=== PATIENT | male | born 1940 | race Caucasian/White ===

== ENCOUNTER 2020-04-12 11:38 | Inpatient (IN) | payer MEDICARE ==
[2020-04-12] MEDS ORDERED: ACETAMINOPHEN TAB 500 MG TAB PO STA (12:09)
[2020-04-12] MEDS ORDERED: SODIUM CHLORIDE 0.9% 500 ML 500 ML IV STA ×2 (12:09→13:53)
--- NOTE | 2020-04-12 12:24 | ED ---
General Adult HPI - General Chief complaint: Weakness Stated complaint: stroke Time Seen by Provider: 04/12/20 12:01 Source: patient, EMS, RN notes reviewed, old records reviewed Mode of arrival: EMS Limitations: altered mental status - History of Present Illness Initial comments: 79-year-old male presenting for evaluation of fever. Patient is coming from a assisted living facility. He was diagnosed with coronavirus on March 27. He received the coronavirus vaccine yesterday and developed fever today. Patient himself has no complaints. He is alert and oriented 1 which is his baseline, history of Alzheimer dementia. He denies pain complaints including no chest pain or abdominal pain. - Related Data Home Medications Medication Instructions Recorded Confirmed Ascorbic Acid [Vitamin C] 500 mg PO BID@0800,1700 04/12/20 04/12/20 Cholecalciferol [Vitamin D3 (25 2,000 unit PO DAILY 04/12/20 04/12/20 Mcg = 1000 Iu)] Citalopram Hydrobromide [CeleXA] 20 mg PO DAILY 04/12/20 04/12/20 Ibuprofen [Motrin] 400 mg PO TID PRN 04/12/20 04/12/20 QUEtiapine [SEROquel] 50 mg PO TID 04/12/20 04/12/20 Zinc 100 mg PO DAILY@1200 04/12/20 04/12/20 busPIRone HCL [Buspar] 7.5 mg PO BID@0800,1700 04/12/20 04/12/20 traZODone HCL 300 mg PO HS 04/12/20 04/12/20 Allergies Allergy/AdvReac Type Severity Reaction Status Date / Time No Known Allergies Allergy Verified 04/12/20 13:02 Review of Systems ROS Statement: Those systems with pertinent positive or pertinent negative responses have been documented in the HPI. ROS Other: All systems not noted in ROS Statement are negative. Past Medical History Past Medical History: Unable to Obtain, Dementia History of Any Multi-Drug Resistant Organisms: Unobtainable Past Surgical History: Unable to Obtain Past Psychological History: Anxiety Smoking Status: Unknown if ever smoked General Exam Limitations: altered mental status General appearance: alert, in no apparent distress Head exam: Present: atraumatic, normocephalic Eye exam: Present: normal appearance, PERRL ENT exam: Present: mucous membranes dry Neck exam: Present: normal inspection. Absent: tenderness, meningismus Respiratory exam: Present: normal lung sounds bilaterally. Absent: respiratory distress, wheezes Cardiovascular Exam: Present: regular rate, normal rhythm GI/Abdominal exam: Present: soft. Absent: distended, tenderness, guarding Extremities exam: Present: normal inspection, normal capillary refill. Absent: pedal edema Neurological exam: Present: alert, CN II-XII intact. Absent: motor sensory deficit Psychiatric exam: Present: normal affect, normal mood Skin exam: Present: warm, dry, intact. Absent: cyanosis, diaphoretic Course Vital Signs 04/12/20 04/12/20 11:43 14:01 Temperature 102.0 F H 99.0 F Pulse Rate 84 60 Respiratory 16 18 Rate Blood Pressure 100/84 108/57 O2 Sat by Pulse 94 L 94 L Oximetry - Reevaluation(s) Reevaluation #1: 04/12/20 14:13 Additional labs are ordered, results are pending for d-dimer and CRP. EKG Findings - EKG Comments: EKG Findings:: EKG: Normal sinus rhythm, rate of 84, GA interval 166, QRS duration 76, QTC 453, no ST segment elevation. Medical Decision Making - Medical Decision Making 79-year-old male presenting with fever, recent history of coronavirus and vaccinated yesterday against coronal virus. Workup was initiated, patient does have a bilateral interstitial pneumonia consistent with coronavirus pneumonia. Patient was 94% on room air. He does appear dehydrated. According to his daughter who is at bedside he states that significant worsening of his dementia over the past one or 2 weeks. Patient is given a dose of antibiotics for this pneumonia although I suspect it may be a continuation of his coronavirus rather than acute bacterial illness. Given the patient's dehydration, and inability to care for himself currently I will admit him for IV hydration and close monitoring. Case discussed with Dr. George who will admit. - Lab Data Result diagrams: 04/12/20 12:26 04/12/20 12:26 Lab Results 04/12/20 04/12/20 04/12/20 Range/Units 12:26 12:26 12:26 WBC 9.3 (3.8-10.6) k/uL RBC 4.60 (4.30-5.90) m/uL Hgb 14.9 (13.0-17.5) gm/dL Hct 41.9 (39.0-53.0) % MCV 91.1 (80.0-100.0) fL MCH 32.3 (25.0-35.0) pg MCHC 35.5 (31.0-37.0) g/dL RDW 11.7 (11.5-15.5) % Plt Count 246 (150-450) k/uL MPV 9.5 Neutrophils % 84 % Lymphocytes % 6 % Monocytes % 6 % Eosinophils % 2 % Basophils % 2 % Neutrophils # 7.8 H (1.3-7.7) k/uL Lymphocytes # 0.6 L (1.0-4.8) k/uL Monocytes # 0.6 (0-1.0) k/uL Eosinophils # 0.2 (0-0.7) k/uL Basophils # 0.1 (0-0.2) k/uL PT 11.3 (9.0-12.0) sec INR 1.1 (<1.2) APTT 25.4 (22.0-30.0) sec Sodium (137-145) mmol/L Potassium (3.5-5.1) mmol/L Chloride (98-107) mmol/L Carbon Dioxide (22-30) mmol/L Anion Gap mmol/L BUN (9-20) mg/dL Creatinine (0.66-1.25) mg/dL Est GFR (CKD-EPI)AfAm (>60 ml/min/1.73 sqM) Est GFR (CKD-EPI)NonAf (>60 ml/min/1.73 sqM) Glucose (74-99) mg/dL Plasma Lactic Acid Vaughn (0.7-2.0) mmol/L Calcium (8.4-10.2) mg/dL Magnesium (1.6-2.3) mg/dL Total Bilirubin (0.2-1.3) mg/dL AST (17-59) U/L ALT (4-49) U/L Alkaline Phosphatase (38-126) U/L Total Protein (6.3-8.2) g/dL Albumin (3.5-5.0) g/dL Urine Color Yellow Urine Appearance Clear (Clear) Urine pH 7.0 (5.0-8.0) Ur Specific Haughton 1.018 (1.001-1.035) Urine Protein Negative (Negative) Urine Glucose (UA) Negative (Negative) Urine Ketones Negative (Negative) Urine Blood Negative (Negative) Urine Nitrite Negative (Negative) Urine Bilirubin Negative (Negative) Urine Urobilinogen 2.0 (<2.0) mg/dL Ur Leukocyte Esterase Negative (Negative) 04/12/20 04/12/20 Range/Units 12:26 12:26 WBC (3.8-10.6) k/uL RBC (4.30-5.90) m/uL Hgb (13.0-17.5) gm/dL Hct (39.0-53.0) % MCV (80.0-100.0) fL MCH (25.0-35.0) pg MCHC (31.0-37.0) g/dL RDW (11.5-15.5) % Plt Count (150-450) k/uL MPV Neutrophils % % Lymphocytes % % Monocytes % % Eosinophils % % Basophils % % Neutrophils # (1.3-7.7) k/uL Lymphocytes # (1.0-4.8) k/uL Monocytes # (0-1.0) k/uL Eosinophils # (0-0.7) k/uL Basophils # (0-0.2) k/uL PT (9.0-12.0) sec INR (<1.2) APTT (22.0-30.0) sec Sodium 137 (137-145) mmol/L Potassium 4.4 (3.5-5.1) mmol/L Chloride 102 (98-107) mmol/L Carbon Dioxide 28 (22-30) mmol/L Anion Gap 7 mmol/L BUN 11 (9-20) mg/dL Creatinine 0.89 (0.66-1.25) mg/dL Est GFR (CKD-EPI)AfAm >90 (>60 ml/min/1.73 sqM) Est GFR (CKD-EPI)NonAf 82 (>60 ml/min/1.73 sqM) Glucose 113 H (74-99) mg/dL Plasma Lactic Acid Vaughn 1.2 (0.7-2.0) mmol/L Calcium 9.0 (8.4-10.2) mg/dL Magnesium 1.9 (1.6-2.3) mg/dL Total Bilirubin 0.8 (0.2-1.3) mg/dL AST 31 (17-59) U/L ALT 21 (4-49) U/L Alkaline Phosphatase 117 (38-126) U/L Total Protein 7.1 (6.3-8.2) g/dL Albumin 3.8 (3.5-5.0) g/dL Urine Color Urine Appearance (Clear) Urine pH (5.0-8.0) Ur Specific Haughton (1.001-1.035) Urine Protein (Negative) Urine Glucose (UA) (Negative) Urine Ketones (Negative) Urine Blood (Negative) Urine Nitrite (Negative) Urine Bilirubin (Negative) Urine Urobilinogen (<2.0) mg/dL Ur Leukocyte Esterase (Negative) Disposition Clinical Impression: COVID-19, Dehydration Disposition: ADMITTED IP TO THIS HOSP Condition: Stable Is patient prescribed a controlled substance at d/c from ED?: No Referrals: Wojciech Knowles MD [Primary Care Provider] - 1-2 days Decision to Admit Reason: Admit from EC Decision Date: 04/12/20 Decision Time: 14:14
[2020-04-12 12:39] LABS: Basophils # (A) 0.1 k/uL (0-0.2); Basophils % (A) 2 %; Eosinophils # (A) 0.2 k/uL (0-0.7); Eosinophils % (A) 2 %; HCT 41.9 % (39.0-53.0); HGB 14.9 gm/dL (13.0-17.5); Lymphocytes # (A) 0.6 k/uL (1.0-4.8); Lymphocytes % (A) 6 %; MCH 32.3 pg (25.0-35.0); MCHC 35.5 g/dL (31.0-37.0); MCV 91.1 fL (80.0-100.0); Mean Platelet Volume 9.5; Monocytes # (A) 0.6 k/uL (0-1.0); Monocytes % (A) 6 %; Neutrophils # (A) 7.8 k/uL (1.3-7.7); Neutrophils % (A) 84 %; Platelet Count 246 k/uL (150-450); RDW 11.7 % (11.5-15.5); WBC 9.3 k/uL (3.8-10.6)
[2020-04-12 12:48] LABS: ALT 21 U/L (4-49); AST 31 U/L (17-59); African American GFR (CKD) >90 (>60 ml/min/1.73 sqM); Albumin 3.8 g/dL (3.5-5.0); Alkaline Phosphatase 117 U/L (38-126); Anion Gap 7 mmol/L; Blood Urea Nitrogen 11 mg/dL (9-20); Carbon Dioxide 28 mmol/L (22-30); Chloride 102 mmol/L (98-107); Glucose 113 mg/dL (74-99); INR 1.1 (<1.2); Magnesium 1.9 mg/dL (1.6-2.3); Non-African American GFR(CKD) 82 (>60 ml/min/1.73 sqM); Partial Thromboplastin Time 25.4 sec (22.0-30.0); Potassium 4.4 mmol/L (3.5-5.1); Prothrombin Time 11.3 sec (9.0-12.0); Sodium 137 mmol/L (137-145); Total Bilirubin 0.8 mg/dL (0.2-1.3); Total Protein 7.1 g/dL (6.3-8.2)
--- NOTE | 2020-04-12 12:58 | XR ---
EXAMINATION TYPE: XR chest 2V DATE OF EXAM: 04/12/2020 COMPARISON: NONE TECHNIQUE: PA and lateral views submitted. HISTORY: Fever FINDINGS: There is hypertrophic and degenerative change of the spine with diffuse hyperinflation. There is inte rstitial and basilar infiltrates with tiny effusions or pleural thickening. Diffuse osteopenia and ar thropathy of the shoulders. No pneumothorax. Heart size normal. IMPRESSION: 1. Interstitial and basilar infiltrates correlate for interstitial pneumonia otherwise consider CHF. 2. COPD.
[2020-04-12 13:29] LABS: Appearance,Urine Clear (Clear); Bilirubin,Urine Negative (Negative); Blood,Urine Negative (Negative); Color,Urine Yellow; Glucose,Urine (UA) Negative (Negative); Ketones,Urine Negative (Negative); Leukocyte Esterase,Urine Negative (Negative); Nitrite,Urine Negative (Negative); Protein,Urine Negative (Negative); Specific Gravity,Urine 1.018 (1.001-1.035)
[2020-04-12] MEDS ORDERED: AZITHROMYCIN 500 MG in SODIUM CHLORIDE 0.9% 250 ML IVPB STA (13:41)
[2020-04-12] MEDS ORDERED: cefTRIAXone IN SWFI 1,000 MG/10 ML SYRINGE IVP STA (13:42)
[2020-04-12] MEDS ORDERED: DEXAMETHASONE SOD PHOSPHATE 10 MG/ML 1 ML VIAL IV STA (14:10)
[2020-04-12] MEDS: SODIUM CHLORIDE 0.9% 1,000 ML IV SCH (14:32)
[2020-04-12] MEDS ORDERED: ACETAMINOPHEN TAB 325 MG TAB PO PRN (15:50)
[2020-04-12] MEDS ORDERED: NALOXONE 0.4 MG/ML 1 ML VIAL IV PRN (15:50)
--- NOTE | 2020-04-12 16:02 | CT ---
EXAMINATION TYPE: CT angio chest DATE OF EXAM: 04/12/2020 COMPARISON: Radiograph same day HISTORY: 79-year-old male Shortness of breath. TECHNIQUE: Contiguous axial scanning of the chest performed with IV Contrast, patient injected with 1 00 mL of Isovue 370. Coronal/sagittal MIP reconstructions performed. CT DLP: 587.3 mGycm Automated exposure control for dose reduction was used. FINDINGS: Heart normal size without pericardial effusion. There is some right atrial dilatation but no flatteni ng of the interventricular septum or reflux of contrast into the hepatic veins. Scattered LAD and circumflex coronary artery calcifications. Aneurysm of the aortic root may measure up to 4.5 cm. Ectatic ascending aorta at 3.6 cm. Additional e ctatic upper descending thoracic aorta at 3.4 cm. Mild atherosclerotic arch calcifications with conve ntional arch with some branching anatomy. Adequate opacification of the pulmonary artery system without evidence for pulmonary embolus. No thoracic lymphadenopathy by CT size criteria. Mild centrilobular emphysema. No pleural effusion. Prominent groundglass opacity in the posterior aspect of the lower lobes bilaterally. Some other scattered groundglass foci are present in the posterior right midlung, for example, axial image 60 and 62, and also within the inferior lingula. 6 mm lateral right mid to lower lung pulmonary nodule. Visualized upper abdomen shows a 5.1 cm cyst of the upper pole left kidney and 5 mm nonobstructive ri ght renal calculus. Bones: DISH throughout the mid and lower thoracic spine. Scattered fatty matrix hemangiomas are prese nt in the thoracic spine. IMPRESSION: 1. NO EVIDENCE FOR PULMONARY EMBOLUS. 2. PROMINENT GROUNDGLASS OPACITY POSTERIOR ASPECT OF THE LOWER LOBES BILATERALLY. ADDITIONAL SCATTERE D GROUNDGLASS FOCI IN THE POSTERIOR RIGHT MIDLUNG AND INFERIOR LINGULA. CORRELATE FOR ATYPICAL/COVID VERSUS ASPIRATION PNEUMONIA. INTERSTITIAL PNEUMONITIS WOULD BE AN ALTERNATIVE CONSIDERATION. 3. A 6 MM PULMONARY NODULE ON THE RIGHT. 6 MONTH FOLLOW-UP CT TO REASSESS. 4. LAD AND CIRCUMFLEX CORONARY ARTERY CALCIFICATIONS. 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 APPROPRIATE FOLLOW-UP RECOMMENDED.
[2020-04-12] MEDS ORDERED: IBUPROFEN 400 MG TAB PO PRN (19:48)
[2020-04-12] MEDS ORDERED: traZODone HCL 100 MG TAB PO SCH (21:00)
[2020-04-12] MEDS: QUEtiapine 50 MG TAB PO SCH (22:29)
[2020-04-13] MEDS: SODIUM CHLORIDE 0.9% 1,000 ML IV SCH (04:10)
[2020-04-13] MEDS ORDERED: ASCORBIC ACID 500 MG TAB PO SCH (08:00)
[2020-04-13] MEDS ORDERED: busPIRone HCl 5 MG TAB PO SCH (08:00)
[2020-04-13] MEDS: QUEtiapine 50 MG TAB PO SCH (08:15)
[2020-04-13] MEDS ORDERED: CITALOPRAM HYDROBROMIDE 20 MG TAB PO SCH (09:00)
[2020-04-13] MEDS ORDERED: CHOLECALCIFEROL 1,000 UNIT TAB PO SCH (09:00)
[2020-04-13 10:19] VITALS: BP 107/61; PULSE 68; RESP 18; TEMP 97.6
[2020-04-13] MEDS ORDERED: ZINC SULFATE 220 MG CAP PO SCH (12:00)
[2020-04-13] MEDS ORDERED: dexAMETHasone 2 MG TAB PO SCH (13:00)
[2020-04-13] MEDS ORDERED: ENOXAPARIN 40 MG/0.4 ML SYRINGE SQ SCH (13:00)
[2020-04-13] MEDS ORDERED: RIVAROXABAN 2.5 MG TABLET PO STA (13:04)
--- NOTE | 2020-04-13 19:25 | P.HPIM ---
History of Present Illness H&P Date: 04/13/20 Chief Complaint: Fever History of presenting complaint This is a pleasant 79-year-old patient currently being followed by a visiting physicians. Patient is a resident of [facility]. Patient's daughter the bedside. Patient has known significant dementia. Otherwise in good health. Doesn't take any medications at home. Patient on March 27 was diagnosed with COVID and was given medications. Not hospitalized. 2 days ago patient did receive the vaccine for COVID 19. Daughter had noticed that patient is feeling little bit tired for last 2 days. Yesterday developed a fever and presented to the ER. Does no cough no shortness of breath. Pulse ox was good. Appetite is slightly gone down but today rapid is really good. Able to walk to the bathroom. Denies any cough or wheezing. Review of systems: GEN.: Tired EYES: None HEENT: None NECK: None RESPIRATORY: None CARDIOVASCULAR: None GASTROINTESTINAL: None GENITOURINARY: None MUSCULOSKELETAL: None LYMPHATICS: None HEMATOLOGICAL: None PSYCHIATRY: Forgetful] NEUROLOGICAL: None Past medical history to include: Dementia Social history: Retired. Lives at [facility]. No history of smoking or alcohol. Family history: Reviewed, noncontributory to presentation Physical examination: VITAL SIGNS: 97.6, 68, 18, 107/61, 95% room air GENERAL: BMI 25.7, sitting up in bed, comfortable. EYES: Pupils equal. Conjunctiva normal. HEENT: External appearance of nose and ears normal, oral cavity grossly normal. NECK: JVD not raised; masses not palpable. HEART: First and second heart sounds are normal; no edema. LUNGS: Respiratory rate normal; clear to auscultation. ABDOMEN: Soft, nontender, liver spleen not palpable, no masses palpable. PSYCH: [Able tonsil simple questions l. NEUROLOGICAL: Cranial nerves grossly intact; no facial asymmetry, power and sensation grossly intact. LYMPHATICS: No lymph nodes palpable in the axilla and neck INVESTIGATIONS, reviewed in the clinical context: White count 9.3 hemoglobin 14.9 platelets 246 lymphocytes 0.6 d-dimer 4.22 potassium 4.4 creatinine 0.89 UA positive Coronavirus P/Cr-detected EKG tracing personally reviewed by me-normal sinus rhythm Chest x-ray film personally reviewed by me-mild infiltrates Computed tomography scan of the chest-negative for PE. Some ground glass opacity. Some coronary calcification. 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 Assessment: -COVID 19 pneumonia with infiltrates on the computed tomography scan. Patient is asymptomatic. Pulse ox is good. Patient did have one spike of fever. No further symptoms. Patient did receive COVID 19 vaccination the day prior and the fever likely from the same. 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 Patient should be able to be discharged care was discussed at length with the patient daughter the bedside. Also give a short course of low-dose xarelto for anticoagulation. Past Medical History Past Medical History: Unable to Obtain, Dementia Additional Past Medical History / Comment(s): advanced Alztimers History of Any Multi-Drug Resistant Organisms: None Reported Past Surgical History: Unable to Obtain Past Anesthesia/Blood Transfusion Reactions: No Reported Reaction Past Psychological History: Anxiety Smoking Status: Unknown if ever smoked - Past Family History Daughter(s) Family Medical History: No Reported History Medications and Allergies Home Medications Medication Instructions Recorded Confirmed Type Ascorbic Acid [Vitamin C] 500 mg PO BID@0800,1700 04/12/20 04/12/20 History Cholecalciferol [Vitamin D3 (25 2,000 unit PO DAILY 04/12/20 04/12/20 History Mcg = 1000 Iu)] Citalopram Hydrobromide [CeleXA] 20 mg PO DAILY 04/12/20 04/12/20 History Ibuprofen [Motrin] 400 mg PO TID PRN 04/12/20 04/12/20 History QUEtiapine [SEROquel] 50 mg PO TID 04/12/20 04/12/20 History Zinc 100 mg PO DAILY@1200 04/12/20 04/12/20 History busPIRone HCL [Buspar] 7.5 mg PO BID@0800,1700 04/12/20 04/12/20 History traZODone HCL 300 mg PO HS 04/12/20 04/12/20 History Rivaroxaban [Xarelto] 2.5 mg PO DAILY #14 tablet 04/13/20 Rx dexAMETHasone [Hexadrol] 6 mg PO DAILY #21 tab 04/13/20 Rx Allergies Allergy/AdvReac Type Severity Reaction Status Date / Time No Known Allergies Allergy Verified 04/12/20 13:02 Physical Exam Vitals: Vital Signs Temp Pulse Pulse Resp BP BP Pulse Ox 04/13/20 10:00 97.6 F 68 18 107/61 95 04/13/20 05:32 97.8 F 78 20 114/71 95 04/13/20 02:00 97.9 F 61 20 97/60 90 L 04/12/20 20:00 97.7 F 67 20 105/56 96 04/12/20 17:44 98.4 F 56 L 18 126/65 95 04/12/20 15:36 74 18 110/74 98 04/12/20 14:11 20 04/12/20 14:01 99.0 F 60 18 108/57 94 L 04/12/20 11:43 102.0 F H 84 16 100/84 94 L Intake and Output 04/12/20 04/13/20 04/13/20 22:59 06:59 14:59 Intake Total 100 Balance 100 Intake: Oral 100 Other: # Voids 1 2 Weight 90.718 kg Results CBC & Chem 7: 04/12/20 12:26 04/12/20 12:26 Labs: Abnormal Lab Results - Last 24 Hours (Table) 04/12/20 04/12/20 04/12/20 Range/Units 12:26 12:26 12:26 Neutrophils # 7.8 H (1.3-7.7) k/uL Lymphocytes # 0.6 L (1.0-4.8) k/uL D-Dimer 4.22 H (<0.60) mg/L FEU Glucose 113 H (74-99) mg/dL C-Reactive Protein (<10.0) mg/L Coronavirus (PCR) (Not Detectd) 04/12/20 04/12/20 Range/Units 12:26 15:45 Neutrophils # (1.3-7.7) k/uL Lymphocytes # (1.0-4.8) k/uL D-Dimer (<0.60) mg/L FEU Glucose (74-99) mg/dL C-Reactive Protein 23.7 H (<10.0) mg/L Coronavirus (PCR) Detected A (Not Detectd) Thrombosis Risk Factor Assmnt - Choose All That Apply Any of the Below Risk Factors Present?: Yes Each Factor Represents 1 point: Serious lung disease incl. pneumonia (< 1month) Other Risk Factors: Yes Each Risk Factor Represents 3 Points: Age 75 years or older Thrombosis Risk Factor Assessment Total Risk Factor Score: 4 Thrombosis Risk Factor Assessment Level: Moderate Risk
--- NOTE | 2020-04-13 19:26 | P.DS ---
Providers Date of admission: 04/12/20 15:50 Expected date of discharge: 04/13/20 Attending physician: Minh George Primary care physician: Wojciech Knowles MD Hospital Course: Chief Complaint: Fever History of presenting complaint This is a pleasant 79-year-old patient currently being followed by a visiting physicians. Patient is a resident of [facility]. Patient's daughter the bedside. Patient has known significant dementia. Otherwise in good health. Doesn't take any medications at home. Patient on March 27 was diagnosed with COVID and was given medications. Not hospitalized. 2 days ago patient did receive the vaccine for COVID 19. Daughter had noticed that patient is feeling little bit tired for last 2 days. Yesterday developed a fever and presented to the ER. Does no cough no shortness of breath. Pulse ox was good. Appetite is slightly gone down but today rapid is really good. Able to walk to the bathroom. Denies any cough or wheezing. Patient is felt to have one spike a fever from the COVID 19 vaccination. Patient's COVID 19 pneumonia as is a dramatic. Pulse ox is good. Patient be given a short course of steroids low-dose xarelto and supplemental vitamin D vitamin C and zinc. Care was discussed with daughter the bedside. Past medical history to include: Dementia Social history: Retired. Lives at [facility]. No history of smoking or alcohol. Family history: Reviewed, noncontributory to presentation Physical examination: VITAL SIGNS: 97.6, 68, 18, 107/61, 95% room air GENERAL: BMI 25.7, sitting up in bed, comfortable. EYES: Pupils equal. Conjunctiva normal. HEENT: External appearance of nose and ears normal, oral cavity grossly normal. NECK: JVD not raised; masses not palpable. HEART: First and second heart sounds are normal; no edema. LUNGS: Respiratory rate normal; clear to auscultation. ABDOMEN: Soft, nontender, liver spleen not palpable, no masses palpable. PSYCH: [Able tonsil simple questions l. NEUROLOGICAL: Cranial nerves grossly intact; no facial asymmetry, power and sensation grossly intact. LYMPHATICS: No lymph nodes palpable in the axilla and neck INVESTIGATIONS, reviewed in the clinical context: White count 9.3 hemoglobin 14.9 platelets 246 lymphocytes 0.6 d-dimer 4.22 potassium 4.4 creatinine 0.89 UA positive Coronavirus P/Cr-detected EKG tracing personally reviewed by me-normal sinus rhythm Chest x-ray film personally reviewed by me-mild infiltrates Computed tomography scan of the chest-negative for PE. Some ground glass opacity. Some coronary calcification. 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 Assessment: -COVID 19 pneumonia with infiltrates on the computed tomography scan. Patient is asymptomatic. Pulse ox is good. -One spike of fever from COVID 19 vaccination. -Moderate cognitive impairment from late onset Alzheimer's dementia Disposition: [facility] Patient Condition at Discharge: Stable Plan - Discharge Summary Discharge Rx Participant: No New Discharge Prescriptions: New dexAMETHasone [Hexadrol] 6 mg PO DAILY #21 tab Rivaroxaban [Xarelto] 2.5 mg PO DAILY #14 tablet Continue Zinc 100 mg PO DAILY@1200 Ibuprofen [Motrin] 400 mg PO TID PRN PRN Reason: Pain traZODone HCL 300 mg PO HS Cholecalciferol [Vitamin D3 (25 Mcg = 1000 Iu)] 2,000 unit PO DAILY Ascorbic Acid [Vitamin C] 500 mg PO BID@0800,1700 QUEtiapine [SEROquel] 50 mg PO TID Citalopram Hydrobromide [CeleXA] 20 mg PO DAILY busPIRone HCL [Buspar] 7.5 mg PO BID@0800,1700 Discharge Medication List Ascorbic Acid [Vitamin C] 500 mg PO BID@0800,1700 04/12/20 [History] Cholecalciferol [Vitamin D3 (25 Mcg = 1000 Iu)] 2,000 unit PO DAILY 04/12/20 [Hi story] Citalopram Hydrobromide [CeleXA] 20 mg PO DAILY 04/12/20 [History] Ibuprofen [Motrin] 400 mg PO TID PRN 04/12/20 [History] QUEtiapine [SEROquel] 50 mg PO TID 04/12/20 [History] Zinc 100 mg PO DAILY@1200 04/12/20 [History] busPIRone HCL [Buspar] 7.5 mg PO BID@0800,1700 04/12/20 [History] traZODone HCL 300 mg PO HS 04/12/20 [History] Rivaroxaban [Xarelto] 2.5 mg PO DAILY #14 tablet 04/13/20 [Rx] dexAMETHasone [Hexadrol] 6 mg PO DAILY #21 tab 04/13/20 [Rx] Follow up Appointment(s)/Referral(s): Wojciech Knowles MD [Primary Care Provider] - 1-2 days Discharge Disposition: HOME SELF-CARE
== END 2020-04-13 14:55 | disposition home or self-care (01) | DRG 177 ==
LOC: EC 11:38 → 4SSUR 15:50
PROVIDERS: ADMIT Hospitalist; ATTEND Hospitalist
DX: U07.1 COVID-19 (principal); J12.82 Pneumonia due to coronavirus disease 2019; R50.83 Postvaccination fever; T50.B95A Adverse effect of other viral vaccines, initial encounter; G30.1 Alzheimer's disease with late onset; E86.0 Dehydration; F02.80 Dementia in other diseases classified elsewhere, unspecified severity, without behavioral disturbance, psychotic disturbance, mood disturbance, and anxiety; F41.9 Anxiety disorder, unspecified; Z79.01 Long term (current) use of anticoagulants; Z79.899 Other long term (current) drug therapy; Z79.82 Long term (current) use of aspirin; Z86.16 Personal history of COVID-19
CPT/HCPCS: 36415; 51701; 71046; 71275; 80053; 81003; 83605; 83735; 85025; 85379; 85610; 85730; 86140; 87040; 87635; 93005; 96361; 96365; 96366; 96375; 99285

== ENCOUNTER 2021-06-19 10:26 | Emergency (ER) | payer MEDICARE ==
[2021-06-19] MEDS ORDERED: DIPH,PERTUS(ACELL)TETVAC-LF 0.5 ML VIAL IM ONE (10:31)
[2021-06-19 10:48] VITALS: RESP 18; TEMP 98.8
[2021-06-19 11:08] LABS: Basophils # (A) 0.1 k/uL (0-0.2); Basophils % (A) 1 %; Eosinophils # (A) 0.4 k/uL (0-0.7); Eosinophils % (A) 6 %; HCT 37.2 % (39.0-53.0); Lymphocytes # (A) 1.8 k/uL (1.0-4.8); Lymphocytes % (A) 25 %; MCH 33.2 pg (25.0-35.0); MCV 94.8 fL (80.0-100.0); Mean Platelet Volume 8.8; Monocytes # (A) 0.5 k/uL (0-1.0); Monocytes % (A) 8 %; Neutrophils % (A) 58 %; Platelet Count 178 k/uL (150-450); RBC 3.93 m/uL (4.30-5.90); RDW 11.8 % (11.5-15.5)
--- NOTE | 2021-06-19 11:17 | ED ---
General Adult HPI - General Chief complaint: Fall Stated complaint: fall, head injury Time Seen by Provider: 06/19/21 10:30 Source: patient, EMS, RN notes reviewed, old records reviewed Mode of arrival: EMS Limitations: no limitations - History of Present Illness Initial comments: Patient is an 80-year-old male with past medical history remarkable for A lzheimer dementia, on xeralto presents emergency Department after a fall at his nursing facility. This was a witnessed fall. Patient fell from standing height, not above ground-level. They believe he lost his balance and fell forward. Has a small abrasion over his forehead. Mild tenderness to palpation around the abrasion. Facility does not think he lost consciousness and patient does not believe he lost consciousness. He otherwise has no acute complaints at this time. Denies any back pain, belly pain, chest pain. Patient is on a blood thinner, and therefore presents emergency department for further evaluation. Unknown last tetanus shot. - Related Data Home Medications Medication Instructions Recorded Confirmed Ascorbic Acid [Vitamin C] 500 mg PO BID@0800,1700 04/12/20 06/19/21 Citalopram Hydrobromide [CeleXA] 20 mg PO DAILY 04/12/20 06/19/21 Ibuprofen [Motrin] 400 mg PO TID 04/12/20 06/19/21 QUEtiapine [SEROquel] 50 mg PO TID 04/12/20 06/19/21 busPIRone HCL [Buspar] 7.5 mg PO BID@0800,1700 04/12/20 06/19/21 traZODone HCL 300 mg PO HS 04/12/20 06/19/21 Cetirizine HCl [Zyrtec] 10 mg PO DAILY 06/19/21 06/19/21 Cholecalciferol [Vitamin D3 (25 50 mcg PO DAILY 06/19/21 06/19/21 Mcg = 1000 Iu)] Docusate Sodium [Dok] 100 mg PO BID 06/19/21 06/19/21 Furosemide [Lasix] 20 mg PO QAM 06/19/21 06/19/21 Mupirocin 2% Oint [Bactroban 2% 1 applic TOPICAL DIRECTED 06/19/21 06/19/21 Oint] Zinc 50 mg PO DAILY 06/19/21 06/19/21 hydrOXYzine HCL [Atarax] 50 mg PO Q6H PRN 06/19/21 06/19/21 Previous Rx's Medication Instructions Recorded Rivaroxaban [Xarelto] 2.5 mg PO DAILY #14 tablet 04/13/20 Allergies Allergy/AdvReac Type Severity Reaction Status Date / Time No Known Allergies Allergy Verified 04/12/20 13:02 Review of Systems ROS Statement: Those systems with pertinent positive or pertinent negative responses have been documented in the HPI. ROS Other: All systems not noted in ROS Statement are negative. Past Medical History Past Medical History: Unable to Obtain, Dementia Additional Past Medical History / Comment(s): advanced Alztimers History of Any Multi-Drug Resistant Organisms: None Reported Past Surgical History: Unable to Obtain Past Anesthesia/Blood Transfusion Reactions: No Reported Reaction Past Psychological History: Anxiety Smoking Status: Unknown if ever smoked - Past Family History Daughter(s) Family Medical History: No Reported History General Exam - General Exam Comments Initial Comments: General: Appears in no acute distress. HEAD: Approximately 1 inch diameter abrasion located over the anterior forehead. No surrounding hematoma or contusion. Mild tenderness to palpation around the site. No obvious step-offs or deformities of the face, scalp, skull. Negative raccoon eyes. Negative Álvarez sign. EYES: PERRLA, EOMI, conjunctiva normal, no discharge. Pupils are 3 mm equal bilaterally. ENT: Hearing grossly intact, normal oropharynx. Cervical collar is in place. RESPIRATORY: [Clear breath sounds bilaterally. No wheezes, rales, or rhonchi. C/V: Regular rate and rhythm. S1 and S2 auscultated, no edema, peripheral pulses 2+ and intact throughout ABD: Abd is soft, nontender, nondistended EXT: Normal range of motion, no obvious deformity. No chest palpation of any of the extremities. Pelvis stable. No cervical, thoracic, lumbar spine tenderness palpation. SKIN: Approximately 1 inch abrasion located over the anterior forehead. Not actively bleeding. NEURO: Alert and oriented times one to 2. Is at baseline per EMS and nursing facility. No focal deficits. Moving all 4 extremity is. NIH is 0. GCS 15. Limitations: no limitations Course Vital Signs 06/19/21 10:39 Temperature 98.8 F Pulse Rate 73 Respiratory 18 Rate Blood Pressure 119/76 O2 Sat by Pulse 96 Oximetry Medical Decision Making - Medical Decision Making Based on the patient's presentation and physical exam, he has a fall from standing on blood thinners. We will obtain CT imaging of the face, head, neck as well as basic laboratory studies. Screening EKG will also be obtained. He will be given a tetanus booster. Refuses analgesia at this time. Patient was in agreement this plan. Patient's EKG shows no signs of acute ischemia.Laboratory studies were unremark able. CT brain and C-spine show no acute injury or process. Facial CT showed no acute injury. Pelvis x-ray shows no acute fracture or subluxation. Chest x- ray revealed no acute fracture or subluxation. On reevaluation, patient is feeling improved. Patient's son presents at bedside at this time and states he has his baseline. She feels comfortable taking him back to his nursing facility. I treated him both on the negative workup. I believe it is safe for him to be be discharged home. I instructed the patient to follow up with their PCP in the next 3 days. I explained that the patient should return to the emergency department if they experience any worsening symptoms. Strict return precautions were discussed with the patient. The patient expressed understanding of these instructions. I answered all questions that the patient had. The patient was discharged home in good condition with their prescriptions and follow up information. - Lab Data Result diagrams: 06/19/21 10:50 06/19/21 10:50 Lab Results 06/19/21 06/19/21 06/19/21 Range/Units 10:50 10:50 10:50 WBC 7.0 (3.8-10.6) k/uL RBC 3.93 L (4.30-5.90) m/uL Hgb 13.0 (13.0-17.5) gm/dL Hct 37.2 L (39.0-53.0) % MCV 94.8 (80.0-100.0) fL MCH 33.2 (25.0-35.0) pg MCHC 35.0 (31.0-37.0) g/dL RDW 11.8 (11.5-15.5) % Plt Count 178 (150-450) k/uL MPV 8.8 Neutrophils % 58 % Lymphocytes % 25 % Monocytes % 8 % Eosinophils % 6 % Basophils % 1 % Neutrophils # 4.0 (1.3-7.7) k/uL Lymphocytes # 1.8 (1.0-4.8) k/uL Monocytes # 0.5 (0-1.0) k/uL Eosinophils # 0.4 (0-0.7) k/uL Basophils # 0.1 (0-0.2) k/uL PT 11.3 (9.0-12.0) sec INR 1.0 (<1.2) APTT 24.5 (22.0-30.0) sec Sodium 138 (137-145) mmol/L Potassium 3.9 (3.5-5.1) mmol/L Chloride 108 H (98-107) mmol/L Carbon Dioxide 26 (22-30) mmol/L Anion Gap 4 mmol/L BUN 17 (9-20) mg/dL Creatinine 0.83 (0.66-1.25) mg/dL Est GFR (CKD-EPI)AfAm >90 (>60 ml/min/1.73 sqM) Est GFR (CKD-EPI)NonAf 83 (>60 ml/min/1.73 sqM) Glucose 95 (74-99) mg/dL Calcium 8.4 (8.4-10.2) mg/dL Magnesium 1.8 (1.6-2.3) mg/dL Total Bilirubin 0.7 (0.2-1.3) mg/dL AST 22 (17-59) U/L ALT 16 (4-49) U/L Alkaline Phosphatase 97 (38-126) U/L Total Protein 5.8 L (6.3-8.2) g/dL Albumin 3.3 L (3.5-5.0) g/dL - EKG Data -: EKG Interpreted by Me EKG Comments: 12-lead Electrocardiogram Interpretation Note EKG was reviewed and interpreted by myself. 12-lead ECG performed at 1059 is interpreted by me as revealing normal sinus rhythm at a rate of 68 beats per minute. [place] is normal. VA interval is 164 ms, QRS duration is 99 ms, QTc is 444 ms.. There were no ST or T wave abnormalities to suggest myocardial ischemia or injury. R wave progression across the precordium was satisfactory. By my interpretation this EKG is non-diagnostic for acute ischemia. Disposition Clinical Impression: Fall, Abrasion, Dementia Disposition: HOME SELF-CARE Condition: Good Instructions (If sedation given, give patient instructions): Fall Prevention for Older Adults (ED), Abrasion (ED) Is patient prescribed a controlled substance at d/c from ED?: No Referrals: Pedro Sharma MD [Primary Care Provider] - 1-2 days
[2021-06-19 11:21] LABS: Partial Thromboplastin Time 24.5 sec (22.0-30.0); Prothrombin Time 11.3 sec (9.0-12.0)
[2021-06-19 11:27] LABS: ALT 16 U/L (4-49); AST 22 U/L (17-59); African American GFR (CKD) >90 (>60 ml/min/1.73 sqM); Albumin 3.3 g/dL (3.5-5.0); Alkaline Phosphatase 97 U/L (38-126); Anion Gap 4 mmol/L; Blood Urea Nitrogen 17 mg/dL (9-20); Calcium 8.4 mg/dL (8.4-10.2); Carbon Dioxide 26 mmol/L (22-30); Chloride 108 mmol/L (98-107); Glucose 95 mg/dL (74-99); Magnesium 1.8 mg/dL (1.6-2.3); Non-African American GFR(CKD) 83 (>60 ml/min/1.73 sqM); Potassium 3.9 mmol/L (3.5-5.1); Sodium 138 mmol/L (137-145); Total Bilirubin 0.7 mg/dL (0.2-1.3); Total Protein 5.8 g/dL (6.3-8.2)
--- NOTE | 2021-06-19 11:28 | XR ---
EXAMINATION TYPE: XR pelvis AP view DATE OF EXAM: 06/19/2021 COMPARISON: NONE HISTORY: Pain Postsurgical change right hip and severe arthropathy left hip with complete loss of joint space and r emodeling of the acetabulum and femoral head. Diffuse osteopenia. Severe degenerative change lower lilia mbar spine. Vascular calcifications noted.. No acute fracture is seen. Visualized bowel gas pattern is nonspecific. IMPRESSION: 1. No acute fracture. 2. Postsurgical change right hip and severe arthropathy of the left hip with complete loss of joint s pace and remodeling of the hip joint.
--- NOTE | 2021-06-19 12:00 | CT ---
EXAMINATION TYPE: CT brain cspine wo con, CT facial bones wo con DATE OF EXAM: 06/19/2021 COMPARISON: None HISTORY: Trauma and pain CT DLP: 1242.2 mGycm Automated exposure control for dose reduction was used. TECHNIQUE: CT scan of the head and cervical spine, facial bones are performed without contrast. FINDINGS: There is no acute intracranial hemorrhage, mass effect, or midline shift identified. The ventricles and sulci are within normal limits in size. Cerebral vascular calcifications are present. There is cortical atrophy present. Periventricular white matter shows patchy low attenuation. The g lobes are intact and the visualized sinuses are clear. Cervical spine is visualized in its entirety from C1 through upper thoracic levels and demonstrates s atisfactory alignment without evidence of acute fracture or dislocation. Prevertebral soft tissue ap pears within normal limits. The C1-C2 articulation is unremarkable. There are degenerative disc stinson ges present, multilevel spondylosis, loss of disc height is present C3-4, C5-6 and C6-7, endplate scl erosis also seen, there is multilevel facet arthropathy, foraminal encroachment, partial ankylosis is present at C2-3 posterior elements on the left CT facial bones is no acute fracture. Paranasal sinuses show inflammatory change maxillary sinuses, n o air-fluid level to suggest acute hemorrhage. Inflammatory change also present within the ethmoid ai r cells and frontal sinus. Orbits are intact. Ostiomeatal unit is obstructed on the right due to soft tissue. Degenerative change present at the temporomandibular joint on the left. Cerumen present in t he external auditory canal on the right and left IMPRESSION: 1. There is no acute fracture or dislocation evident in the cervical spine. 2. No acute intracranial hemorrhage, mass effect, or midline shift is seen. 3. Sinus disease. No evident facial bone fracture
--- NOTE | 2021-06-19 13:13 | XR ---
EXAMINATION TYPE: XR chest 1V portable DATE OF EXAM: 06/19/2021 COMPARISON: 04/12/2020 HISTORY: Shortness of breath TECHNIQUE: Frontal and lateral views of the chest are obtained. FINDINGS: Scattered senescent parenchymal changes noted. No evidence for infiltrate. No evidence for atelectasis. Heart size is stable. Mediastinal structures are stable and grossly unremarkable. No evidence for hilar prominence. Degenerative changes dorsal spine. IMPRESSION: 1. No evidence for acute pulmonary disease.
[2021-06-19 13:52] VITALS: BP 146/97; PULSE 74
== END 2021-06-19 13:51 | disposition home or self-care (01) ==
LOC: EEVIPCON 10:26 → EC 10:26
DX: S00.81XA Abrasion of other part of head, initial encounter (principal); G30.9 Alzheimer's disease, unspecified; F02.80 Dementia in other diseases classified elsewhere, unspecified severity, without behavioral disturbance, psychotic disturbance, mood disturbance, and anxiety; F41.9 Anxiety disorder, unspecified; Z79.01 Long term (current) use of anticoagulants; Z79.899 Other long term (current) drug therapy; Z23 Encounter for immunization; W18.30XA Fall on same level, unspecified, initial encounter; Y92.129 Unspecified place in nursing home as the place of occurrence of the external cause
CPT/HCPCS: 36415; 70450; 70486; 71045; 72125; 72170; 80053; 83735; 85025; 85610; 85730; 90471; 90715; 93005; 99285